=== PATIENT | male | born 1990 | race Caucasian/White ===

== ENCOUNTER 2018-01-25 14:33 | Inpatient (IN) | payer MEDICAID, OTHER ==
[~2018-01-25] VITALS: Ht 185.4 cm; Wt 79.2 kg
[2018-01-25] MEDS ORDERED: ALPR0.5T8 PO (15:00)
[2018-01-25] MEDS ORDERED: METH10 PO (15:02)
[2018-01-25] MEDS ORDERED: METH10SO PO (15:05)
[2018-01-25 15:09] LABS: BASOPHILS % (AUTO) 0.5 % (0.0-2.0); EOSINOPHILS % (AUTO) 2.1 % (1.0-6.0); HEMATOCRIT 42.6 % (41-53); HEMOGLOBIN 14.7 g/dL (13.5-17.5); LYMPHOCYTES # (AUTO) 2.1 K/uL (1.0-4.8); LYMPHOCYTES % (AUTO) 27.1 % (22.0-44.0); MEAN CORPUSCULAR HEMOGLOBIN 30.8 pg (26.0-34.0); MEAN CORPUSCULAR HGB CONC 34.6 G/dL (31.0-37.0); MEAN CORPUSCULAR VOLUME 89 fL (80-100); MONOCYTES # (AUTO) 0.7 K/uL (0.1-1.0); NEUTROPHILS # (AUTO) 4.7 K/uL (1.8-7.7); NEUTROPHILS % (AUTO) 61.3 % (40.0-70.0); PLATELET COUNT (AUTO) 258 K/uL (150-450); RED BLOOD CELL COUNT(AUTO) 4.79 MIL/uL (4.50-5.90); RED CELL DISTRIBUTION WIDTH 14.7 % (11.5-14.5)
[2018-01-25 15:24] LABS: ANION GAP 7 mmol/L (8-16); CALCIUM, TOTAL 8.7 mg/dL (8.8-10.5); CARBON DIOXIDE 32 mmol/L (22-29); CHLORIDE 102 mmol/L (98-107); CREATININE 0.75 mg/dL (0.60-1.30); GLOMERULAR FILTR. RATE CALC > 60 mL/min (>60); GLUCOSE,RANDOM 86 mg/dL (70-110); POTASSIUM 3.8 mmol/L (3.5-5.1); SODIUM SERUM 141 mmol/L (136-145); UREA NITROGEN, BLOOD 10 mg/dL (7-18)
[2018-01-25 15:30] LABS: ALANINE AMINOTRANSFERASE 30 U/L (12-78); ALBUMIN 3.9 g/dL (3.4-5.0); ALKALINE PHOSPHATASE 85 U/L (46-116); ASPARTATE AMINOTRANSFERASE 32 U/L (15-37); BILIRUBIN,TOTAL 0.9 mg/dL (0.1-1.0); TOTAL PROTEIN, SERUM 7.2 g/dL (6.4-8.2)
[2018-01-25] MEDS ORDERED: ACETAMINOPHEN 500 MG TABLET PO ONE (15:30)
[2018-01-25] MEDS ORDERED: PERTUSS(ACELL),DIPH,TET VAC/PF 0.5 ML VIAL IM ONE (15:30)
[2018-01-25] MEDS ORDERED: MUPIROCIN CALCIUM 2% 22 GM OINTMENT TP ONE (15:30)
[2018-01-25] MEDS ORDERED: SULFAMETHOX/TRIMETH DS 800-160 MG/TABLET PO ONE (16:00)
[2018-01-25] MEDS ORDERED: CEPHALEXIN MONOHYDRATE 500 MG CAPSULE PO ONE (16:00)
[2018-01-25 16:16] LABS: AMPHET/METH SCREEN,URINE POSITIVE (NEGATIVE); BARBITURATE SCREEN, URINE NEGATIVE (NEGATIVE); BENZODIAZEPINES SCREEN,URINE POSITIVE (NEGATIVE); CANNABINOID SCREEN,URINE NEGATIVE (NEGATIVE); COCAINE SCREEN,URINE NEGATIVE (NEGATIVE); METHADONE SCREEN, URINE POSITIVE (NEGATIVE); OPIATE SCREEN,URINE NEGATIVE (NEGATIVE)
[2018-01-25 16:18] LABS: PHENCYCLIDINE SCREEN,URINE NEGATIVE (NEGATIVE)
[2018-01-25] MEDS ORDERED: ZOLPIDEM TARTRATE 10 MG TABLET PO PRN (18:45)
[2018-01-25] MEDS ORDERED: OLANZapine 5 MG RAPDIS TABLET PO PRN (18:45)
[2018-01-25] MEDS ORDERED: LORazepam 2 MG TABLET PO PRN (18:45)
[2018-01-25 23:04] VITALS: BP 114/72
[2018-01-26 08:06] VITALS: BP 108/57
[2018-01-26] MEDS ORDERED: ACETAMINOPHEN 325 MG TABLET PO PRN (16:45)
[2018-01-26] MEDS ORDERED: ALBUTEROL SULFATE HFA 90 MCG/PUFF 8 GM INHALER IH PRN (16:45)
[2018-01-26] MEDS ORDERED: PETROLATUM,WHITE 71 GM JELLY TP PRN (16:45)
[2018-01-26] MEDS ORDERED: MAGNESIUM HYDROXIDE SUSPENSION 30 ML UDCUP PO PRN (16:45)
[2018-01-26] MEDS ORDERED: LOPERAMIDE HCL 2 MG CAPSULE PO PRN (16:45)
[2018-01-26] MEDS ORDERED: BENZOCAINE/MENTHOL LOZENGE MM PRN (16:45)
[2018-01-26] MEDS ORDERED: MAG HYDROX/AL HYDROX/SIMETH ES 30 ML SUSPENSION UDCUP PO PRN (16:45)
[2018-01-26] MEDS ORDERED: ONDANSETRON HCL 4 MG TABLET PO PRN (16:45)
[2018-01-26] MEDS ORDERED: BACITRACIN 28.4 GM OINTMENT TP PRN (16:45)
[2018-01-26] MEDS ORDERED: IBUPROFEN 600 MG TABLET PO PRN (16:45)
[2018-01-26] MEDS ORDERED: CloNIDine HCL 0.1 MG TABLET PO PRN (16:45)
[2018-01-26 17:38] VITALS: BP 125/72
[2018-01-26 20:30] VITALS: BP 110/84
[2018-01-26] MEDS: GABAPENTIN 300 MG CAPSULE PO SCH (21:46)
[2018-01-27 07:52] LABS: HEMATOCRIT 41.9 % (41-53); HEMOGLOBIN 14.6 g/dL (13.5-17.5); MEAN CORPUSCULAR HEMOGLOBIN 31.2 pg (26.0-34.0); MEAN CORPUSCULAR HGB CONC 34.8 G/dL (31.0-37.0); MEAN CORPUSCULAR VOLUME 90 fL (80-100); PLATELET COUNT (AUTO) 254 K/uL (150-450); RED BLOOD CELL COUNT(AUTO) 4.68 MIL/uL (4.50-5.90); RED CELL DISTRIBUTION WIDTH 14.7 % (11.5-14.5)
[2018-01-27 08:33] LABS: ANION GAP 3 mmol/L (8-16); CALCIUM, TOTAL 8.7 mg/dL (8.8-10.5); CARBON DIOXIDE 33 mmol/L (22-29); CHLORIDE 105 mmol/L (98-107); CHOL/HDL RATIO 2.6 (4.2-7.3); CHOLESTEROL 155 mg/dL (131-200); CREATININE 0.79 mg/dL (0.60-1.30); GLOMERULAR FILTR. RATE CALC > 60 mL/min (>60); GLUCOSE,RANDOM 105 mg/dL (70-110); HDL CHOLESTEROL 59 mg/dL (40-60); LDL CHOL (CALC.) 78 mg/dL (0-130); PHOSPHORUS 3.1 mg/dL (2.5-4.9); POTASSIUM 4.8 mmol/L (3.5-5.1); SODIUM SERUM 141 mmol/L (136-145); THYROID STIMULATING HORMONE 0.15 uIU/mL (0.36-3.74); TRIGLYCERIDES 91 mg/dL (15-150); UREA NITROGEN, BLOOD 7 mg/dL (7-18)
[2018-01-27 08:46] LABS: BAND NEUTROPHILS % (MANUAL) 1 % (0-5); EOSINOPHILS % (MANUAL) 2 % (1-6); LYMPHOCYTES % (MANUAL) 32 % (22-44); MONOCYTES % (MANUAL) 3 % (2-9); SEGMENTED NEUTROPHILS % 62 % (40-70)
[2018-01-27] MEDS ORDERED: DULoxetine HCL 20 MG CAPSULE PO SCH (09:00)
[2018-01-27] MEDS: OMEPRAZOLE 20 MG CAPSULE PO SCH (09:02)
[2018-01-27] MEDS: GABAPENTIN 300 MG CAPSULE PO SCH (09:02)
[2018-01-27] MEDS: DOCUSATE SODIUM 100 MG CAPSULE PO SCH (09:02)
[2018-01-27] MEDS: DISULFIRAM 250 MG TABLET PO SCH (09:02)
[2018-01-27 09:07] VITALS: BP 130/81
[2018-01-27] MEDS: METHADONE HCL 10 MG/5 ML SOLUTION ORAL.SYG PO SCH (09:46)
[2018-01-27] MEDS ORDERED: LORazepam 0.5 MG TABLET PO PRN (12:22)
[2018-01-27] MEDS: GABAPENTIN 400 MG CAPSULE PO SCH ×3 (13:52→20:32)
[2018-01-27 18:39] VITALS: BP 110/56
[2018-01-28 08:38] VITALS: BP 113/83
[2018-01-28] MEDS: GABAPENTIN 400 MG CAPSULE PO SCH ×4 (09:17→21:49)
[2018-01-28] MEDS: METHADONE HCL 10 MG/5 ML SOLUTION ORAL.SYG PO SCH (09:17)
[2018-01-28] MEDS: OMEPRAZOLE 20 MG CAPSULE PO SCH (09:17)
[2018-01-28] MEDS: DOCUSATE SODIUM 100 MG CAPSULE PO SCH (09:17)
[2018-01-28] MEDS: DISULFIRAM 250 MG TABLET PO SCH (09:17)
[2018-01-28] MEDS: DULoxetine HCL 30 MG CAPSULE PO SCH (09:18)
[2018-01-28 16:55] VITALS: BP 128/56
[2018-01-29] MEDS: OMEPRAZOLE 20 MG CAPSULE PO SCH (09:20)
[2018-01-29] MEDS: DULoxetine HCL 30 MG CAPSULE PO SCH (09:20)
[2018-01-29] MEDS: DOCUSATE SODIUM 100 MG CAPSULE PO SCH (09:20)
[2018-01-29] MEDS: DISULFIRAM 250 MG TABLET PO SCH (09:20)
[2018-01-29] MEDS: GABAPENTIN 400 MG CAPSULE PO SCH ×3 (09:20→16:52)
[2018-01-29 09:30] VITALS: BP 130/64
[2018-01-29] MEDS: METHADONE HCL 10 MG/5 ML SOLUTION ORAL.SYG PO SCH (11:04)
[2018-01-29 16:30] VITALS: BP 120/62
[2018-01-29] MEDS: GABAPENTIN 300 MG CAPSULE PO SCH (20:18)
[2018-01-30] MEDS: OMEPRAZOLE 20 MG CAPSULE PO SCH (08:13)
[2018-01-30] MEDS: DOCUSATE SODIUM 100 MG CAPSULE PO SCH (08:13)
[2018-01-30] MEDS: DULoxetine HCL 20 MG CAPSULE PO SCH (08:13)
[2018-01-30] MEDS: GABAPENTIN 300 MG CAPSULE PO SCH ×4 (08:14→20:43)
[2018-01-30] MEDS: DISULFIRAM 250 MG TABLET PO SCH (08:14)
[2018-01-30 08:30] VITALS: BP 132/72
[2018-01-30] MEDS: METHADONE HCL 10 MG/5 ML SOLUTION ORAL.SYG PO SCH (09:40)
[2018-01-30 18:56] VITALS: BP 109/67
[2018-01-31 08:30] VITALS: BP 126/89
[2018-01-31] MEDS: METHADONE HCL 10 MG/5 ML SOLUTION ORAL.SYG PO SCH (08:35)
[2018-01-31] MEDS: DOCUSATE SODIUM 100 MG CAPSULE PO SCH (09:20)
[2018-01-31] MEDS: DULoxetine HCL 20 MG CAPSULE PO SCH (09:20)
[2018-01-31] MEDS: OMEPRAZOLE 20 MG CAPSULE PO SCH (09:20)
[2018-01-31] MEDS: GABAPENTIN 300 MG CAPSULE PO SCH ×3 (09:20→17:26)
[2018-01-31] MEDS: DISULFIRAM 250 MG TABLET PO SCH (09:20)
[2018-01-31] MEDS ORDERED: DISU250 PO (09:35)
[2018-01-31] MEDS ORDERED: DULO20CA30 PO (09:35)
[2018-01-31] MEDS ORDERED: GABA-531 PO (09:35)
[2018-01-31] MEDS ORDERED: DSS100 PO (09:37)
[2018-01-31] MEDS ORDERED: OMEP20 PO (09:37)
== END 2018-01-31 17:45 | disposition home or self-care (01) | DRG 751 ==
LOC: EMS 14:37 → AHU 22:00 → EMS 22:13 → 3EI 01-26 20:03
PROVIDERS: ADMIT Psychiatry & Neurology Psychiatry; ATTEND Psychiatry & Neurology Psychiatry
DX: F33.2 Major depressive disorder, recurrent severe without psychotic features (principal); R45.851 Suicidal ideations; E83.51 Hypocalcemia; F11.10 Opioid abuse, uncomplicated; F15.90 Other stimulant use, unspecified, uncomplicated; F41.9 Anxiety disorder, unspecified; G47.00 Insomnia, unspecified; K59.00 Constipation, unspecified; M79.675 Pain in left toe(s); M25.532 Pain in left wrist; F17.210 Nicotine dependence, cigarettes, uncomplicated; Z59.0 Homelessness; Z88.0 Allergy status to penicillin; Z88.8 Allergy status to other drugs, medicaments and biological substances; Z79.899 Other long term (current) drug therapy; Z72.89 Other problems related to lifestyle; Z71.6 Tobacco abuse counseling; Z71.51 Drug abuse counseling and surveillance of drug abuser; Z71.41 Alcohol abuse counseling and surveillance of alcoholic
CPT/HCPCS: 82306; 83735; 84100; 84443; 85007; 90471; 90715; 99285; G0480

== ENCOUNTER 2018-03-04 09:28 | Inpatient (IN) | payer MEDICAID, OTHER ==
[~2018-03-04] VITALS: Ht 185.4 cm; Wt 78.9 kg
[~2018-03-04 09:28] MED LIST: DISU250 PO; DSS100 PO; DULO20CA30 PO; GABA-531 PO; OMEP20 PO
[2018-03-04 10:12] LABS: BASOPHILS % (AUTO) 0.2 % (0.0-2.0); EOSINOPHILS % (AUTO) 0.4 % (1.0-6.0); HEMATOCRIT 43.1 % (41-53); HEMOGLOBIN 14.9 g/dL (13.5-17.5); LYMPHOCYTES # (AUTO) 1.1 K/uL (1.0-4.8); LYMPHOCYTES % (AUTO) 12.8 % (22.0-44.0); MEAN CORPUSCULAR HEMOGLOBIN 30.2 pg (26.0-34.0); MEAN CORPUSCULAR HGB CONC 34.7 G/dL (31.0-37.0); MEAN CORPUSCULAR VOLUME 87 fL (80-100); MONOCYTES # (AUTO) 0.3 K/uL (0.1-1.0); MONOCYTES % (AUTO) 3.2 % (2.0-9.0); NEUTROPHILS # (AUTO) 7.2 K/uL (1.8-7.7); NEUTROPHILS % (AUTO) 83.4 % (40.0-70.0); PLATELET COUNT (AUTO) 226 K/uL (150-450); RED BLOOD CELL COUNT(AUTO) 4.95 MIL/uL (4.50-5.90); RED CELL DISTRIBUTION WIDTH 13.5 % (11.5-14.5)
[2018-03-04 10:27] LABS: ANION GAP 9 mmol/L (8-16); CALCIUM, TOTAL 9.2 mg/dL (8.8-10.5); CARBON DIOXIDE 27 mmol/L (22-29); CHLORIDE 101 mmol/L (98-107); CREATININE 0.75 mg/dL (0.60-1.30); GLOMERULAR FILTR. RATE CALC > 60 mL/min (>60); GLUCOSE,RANDOM 100 mg/dL (70-110); POTASSIUM 4.2 mmol/L (3.5-5.1); SODIUM SERUM 137 mmol/L (136-145); UREA NITROGEN, BLOOD 11 mg/dL (7-18)
[2018-03-04 10:32] LABS: ALANINE AMINOTRANSFERASE 18 U/L (12-78); ALBUMIN 4.1 g/dL (3.4-5.0); ALKALINE PHOSPHATASE 63 U/L (46-116); ASPARTATE AMINOTRANSFERASE 16 U/L (15-37); BILIRUBIN,TOTAL 0.6 mg/dL (0.1-1.0); TOTAL PROTEIN, SERUM 7.3 g/dL (6.4-8.2)
[2018-03-04 12:08] LABS: AMPHET/METH SCREEN,URINE POSITIVE (NEGATIVE); BARBITURATE SCREEN, URINE NEGATIVE (NEGATIVE); BENZODIAZEPINES SCREEN,URINE POSITIVE (NEGATIVE); CANNABINOID SCREEN,URINE NEGATIVE (NEGATIVE); COCAINE SCREEN,URINE NEGATIVE (NEGATIVE); METHADONE SCREEN, URINE POSITIVE (NEGATIVE); OPIATE SCREEN,URINE NEGATIVE (NEGATIVE)
[2018-03-04] MEDS ORDERED: LORazepam 2 MG TABLET PO PRN (12:15)
[2018-03-04 12:39] LABS: PHENCYCLIDINE SCREEN,URINE NEGATIVE (NEGATIVE)
[2018-03-04 12:44] LABS: APPEARANCE,URINE CLOUDY (CLEAR); GLUCOSE, URINE (UA) NEGATIVE (NEGATIVE); KETONES,URINE >=80 mg/dL (NEGATIVE); LEUKOCYTE ESTERASE ,URINE NEGATIVE (NEGATIVE); NITRATE,URINE NEGATIVE (NEGATIVE); OCCULT BLOOD,URINE NEGATIVE (NEGATIVE); PH,URINE 6.5 (5.0-8.0); PROTEIN,URINE NEGATIVE (NEGATIVE)
[2018-03-04 12:45] LABS: BILIRUBIN,URINE PRELIM. POSITIVE (NEGATIVE)
[2018-03-04 12:48] LABS: RBC,URINE 0-2 /HPF (0-2)
[2018-03-04 12:49] LABS: BACTERIA,URINE None Seen /HPF (None Seen); SQUAMOUS EPITHELIAL CELL,UR Rare /LPF (None Seen)
[2018-03-04 12:50] LABS: CALCIUM OXALATE CRYSTALS,UR Many /LPF (None Seen); MUCUS,URINE Many LPF (None Seen)
[2018-03-04] MEDS ORDERED: PROMETHAZINE HCL 25 MG TABLET PO PRN (13:45)
[2018-03-04] MEDS ORDERED: MAG HYDROX/AL HYDROX/SIMETH ES 30 ML SUSPENSION UDCUP PO PRN ×2 (13:45→15:15)
[2018-03-04] MEDS ORDERED: MAGNESIUM HYDROXIDE SUSPENSION 30 ML UDCUP PO PRN ×2 (13:45→15:15)
[2018-03-04] MEDS ORDERED: LOPERAMIDE HCL 2 MG CAPSULE PO PRN ×2 (13:45→15:15)
[2018-03-04] MEDS ORDERED: ACETAMINOPHEN 325 MG TABLET PO PRN ×2 (13:45→15:15)
[2018-03-04] MEDS ORDERED: GuaiFENesin/D-METHORPHAN [SUGAR-FREE] 200-20MG/10 ML SYRUP UDCUP PO PRN (13:45)
[2018-03-04 14:54] VITALS: BP 112/83
[2018-03-04] MEDS ORDERED: ALBUTEROL SULFATE HFA 90 MCG/PUFF 8 GM INHALER IH PRN (15:15)
[2018-03-04] MEDS ORDERED: IBUPROFEN 600 MG TABLET PO PRN (15:15)
[2018-03-04] MEDS ORDERED: BENZOCAINE/MENTHOL LOZENGE MM PRN (15:15)
[2018-03-04] MEDS ORDERED: PETROLATUM,WHITE 71 GM JELLY TP PRN (15:15)
[2018-03-04] MEDS ORDERED: CloNIDine HCL 0.1 MG TABLET PO PRN (15:15)
[2018-03-04] MEDS ORDERED: BACITRACIN 28.4 GM OINTMENT TP PRN (15:15)
[2018-03-04] MEDS ORDERED: ONDANSETRON HCL 4 MG TABLET PO PRN (15:15)
[2018-03-04] MEDS: THIAMINE HCL 100 MG TABLET PO SCH (16:03)
[2018-03-04] MEDS: GABAPENTIN 300 MG CAPSULE PO SCH (16:05)
[2018-03-04] MEDS: HydrOXYzine PAMOATE 50 MG CAPSULE PO PRN (16:05)
[2018-03-04 16:10] VITALS: BP 110/61
[2018-03-04] MEDS ORDERED: GABAPENTIN 300 MG CAPSULE PO SCH (17:00)
[2018-03-04] MEDS: ACAMPROSATE CALCIUM 333 MG DR TABLET PO SCH (17:15)
[2018-03-04] MEDS ORDERED: PARoxetine HCL 20 MG TABLET PO SCH (21:00)
[2018-03-05 03:20] VITALS: BP 112/66
[2018-03-05] MEDS: OLANZapine 5 MG RAPDIS TABLET PO PRN (03:30)
[2018-03-05 08:45] VITALS: BP 122/65
[2018-03-05] MEDS: GABAPENTIN 300 MG CAPSULE PO SCH ×3 (08:54→16:20)
[2018-03-05] MEDS: FOLIC ACID 1 MG TABLET PO SCH (08:54)
[2018-03-05] MEDS: THIAMINE HCL 100 MG TABLET PO SCH ×2 (08:54→16:20)
[2018-03-05] MEDS: OMEPRAZOLE 20 MG CAPSULE PO SCH (08:54)
[2018-03-05] MEDS: ACAMPROSATE CALCIUM 333 MG DR TABLET PO SCH ×3 (08:54→16:20)
[2018-03-05] MEDS: MULTIVITAMINS WITH MINERALS, THERAPEUTIC TABLET PO SCH (08:54)
[2018-03-05] MEDS: DOCUSATE SODIUM 100 MG CAPSULE PO SCH (08:54)
[2018-03-05] MEDS ORDERED: DULoxetine HCL 20 MG CAPSULE PO SCH (09:00)
[2018-03-05 09:33] LABS: CHOL/HDL RATIO 4.3 (4.2-7.3)
[2018-03-05] MEDS: METHADONE HCL 10 MG/5 ML SOLUTION ORAL.SYG PO SCH (09:43)
[2018-03-05] MEDS ORDERED: BACITRACIN 28.4 GM OINTMENT TP PRN (12:45)
[2018-03-05] MEDS ORDERED: BENZOCAINE/MENTHOL LOZENGE MM PRN (12:45)
[2018-03-05] MEDS ORDERED: ALBUTEROL SULFATE HFA 90 MCG/PUFF 8 GM INHALER IH PRN (12:45)
[2018-03-05] MEDS ORDERED: CloNIDine HCL 0.1 MG TABLET PO PRN (12:45)
[2018-03-05] MEDS ORDERED: ONDANSETRON HCL 4 MG TABLET PO PRN (12:45)
[2018-03-05] MEDS ORDERED: IBUPROFEN 600 MG TABLET PO PRN (12:45)
[2018-03-05] MEDS ORDERED: PETROLATUM,WHITE 71 GM JELLY TP PRN (12:45)
[2018-03-05] MEDS: HydrOXYzine PAMOATE 50 MG CAPSULE PO PRN (16:21)
[2018-03-05 18:16] VITALS: BP 115/71
[2018-03-05] MEDS: PARoxetine HCL 20 MG TABLET PO SCH (20:22)
[2018-03-05] MEDS: ZOLPIDEM TARTRATE 10 MG TABLET PO PRN (20:43)
[2018-03-06 04:22] VITALS: BP 114/78
[2018-03-06] MEDS: DOCUSATE SODIUM 100 MG CAPSULE PO SCH (08:33)
[2018-03-06] MEDS: GABAPENTIN 300 MG CAPSULE PO SCH ×3 (08:33→16:10)
[2018-03-06] MEDS: THIAMINE HCL 100 MG TABLET PO SCH ×2 (08:34→16:10)
[2018-03-06] MEDS: MULTIVITAMINS WITH MINERALS, THERAPEUTIC TABLET PO SCH (08:34)
[2018-03-06] MEDS: FOLIC ACID 1 MG TABLET PO SCH (08:34)
[2018-03-06] MEDS: OMEPRAZOLE 20 MG CAPSULE PO SCH (08:35)
[2018-03-06 08:36] VITALS: BP 119/73
[2018-03-06] MEDS: ACAMPROSATE CALCIUM 333 MG DR TABLET PO SCH ×3 (08:37→17:00)
[2018-03-06] MEDS: METHADONE HCL 10 MG/5 ML SOLUTION ORAL.SYG PO SCH (08:46)
[2018-03-06] MEDS ORDERED: OMEPRAZOLE 20 MG CAPSULE PO SCH (09:00)
[2018-03-06] MEDS: HydrOXYzine PAMOATE 50 MG CAPSULE PO PRN ×2 (11:31→21:43)
[2018-03-06] MEDS: NICOTINE 21 MG/24 HOUR PATCH TD SCH (12:21)
[2018-03-06 16:35] VITALS: BP 113/68
[2018-03-06] MEDS: ZOLPIDEM TARTRATE 10 MG TABLET PO PRN (20:24)
[2018-03-06] MEDS: PARoxetine HCL 20 MG TABLET PO SCH (20:24)
[2018-03-07 06:57] VITALS: BP 113/68
[2018-03-07] MEDS: METHADONE HCL 10 MG/5 ML SOLUTION ORAL.SYG PO SCH (08:29)
[2018-03-07] MEDS: GABAPENTIN 300 MG CAPSULE PO SCH ×3 (08:31→16:15)
[2018-03-07] MEDS: MULTIVITAMINS WITH MINERALS, THERAPEUTIC TABLET PO SCH (08:31)
[2018-03-07] MEDS: FOLIC ACID 1 MG TABLET PO SCH (08:31)
[2018-03-07] MEDS: OMEPRAZOLE 20 MG CAPSULE PO SCH (08:31)
[2018-03-07] MEDS: THIAMINE HCL 100 MG TABLET PO SCH ×2 (08:31→16:15)
[2018-03-07] MEDS: DOCUSATE SODIUM 100 MG CAPSULE PO SCH (08:31)
[2018-03-07] MEDS: ACAMPROSATE CALCIUM 333 MG DR TABLET PO SCH ×3 (08:32→16:19)
[2018-03-07 08:38] VITALS: BP 124/74
[2018-03-07] MEDS: NICOTINE 21 MG/24 HOUR PATCH TD SCH (09:00)
[2018-03-07] MEDS: HydrOXYzine PAMOATE 50 MG CAPSULE PO PRN ×2 (10:56→16:15)
[2018-03-07 16:30] VITALS: BP 112/70
[2018-03-07] MEDS: PARoxetine HCL 20 MG TABLET PO SCH (20:17)
[2018-03-07] MEDS: OLANZapine 5 MG RAPDIS TABLET PO PRN (20:22)
[2018-03-07] MEDS: ZOLPIDEM TARTRATE 10 MG TABLET PO PRN (21:16)
[2018-03-08 01:29] VITALS: BP 113/64
[2018-03-08 08:00] VITALS: BP 124/68
[2018-03-08] MEDS: GABAPENTIN 300 MG CAPSULE PO SCH ×2 (08:49→12:29)
[2018-03-08] MEDS: NICOTINE 21 MG/24 HOUR PATCH TD SCH (08:49)
[2018-03-08] MEDS: ACAMPROSATE CALCIUM 333 MG DR TABLET PO SCH ×3 (08:50→17:00)
[2018-03-08] MEDS: MULTIVITAMINS WITH MINERALS, THERAPEUTIC TABLET PO SCH (08:50)
[2018-03-08] MEDS: OLANZapine 5 MG RAPDIS TABLET PO PRN ×2 (08:50→18:30)
[2018-03-08] MEDS: DOCUSATE SODIUM 100 MG CAPSULE PO SCH (08:50)
[2018-03-08] MEDS: FOLIC ACID 1 MG TABLET PO SCH (08:50)
[2018-03-08] MEDS: OMEPRAZOLE 20 MG CAPSULE PO SCH (08:50)
[2018-03-08] MEDS: THIAMINE HCL 100 MG TABLET PO SCH ×2 (08:50→16:12)
[2018-03-08] MEDS: HydrOXYzine PAMOATE 50 MG CAPSULE PO PRN ×2 (08:50→18:30)
[2018-03-08] MEDS: METHADONE HCL 10 MG/5 ML SOLUTION ORAL.SYG PO SCH ×2 (08:50→08:53)
[2018-03-08] MEDS: GABAPENTIN 400 MG CAPSULE PO SCH (16:12)
[2018-03-08 19:31] VITALS: BP 121/70
[2018-03-08] MEDS: PARoxetine HCL 20 MG TABLET PO SCH (20:30)
[2018-03-08] MEDS: ZOLPIDEM TARTRATE 10 MG TABLET PO PRN (20:37)
[2018-03-09 06:41] VITALS: BP 115/76
[2018-03-09] MEDS: FOLIC ACID 1 MG TABLET PO SCH (08:15)
[2018-03-09] MEDS: MULTIVITAMINS WITH MINERALS, THERAPEUTIC TABLET PO SCH (08:15)
[2018-03-09] MEDS: NICOTINE 21 MG/24 HOUR PATCH TD SCH (08:15)
[2018-03-09] MEDS: THIAMINE HCL 100 MG TABLET PO SCH ×2 (08:15→17:39)
[2018-03-09] MEDS: OMEPRAZOLE 20 MG CAPSULE PO SCH (08:15)
[2018-03-09] MEDS: ACAMPROSATE CALCIUM 333 MG DR TABLET PO SCH ×3 (08:15→17:00)
[2018-03-09] MEDS: DOCUSATE SODIUM 100 MG CAPSULE PO SCH (08:15)
[2018-03-09] MEDS: GABAPENTIN 400 MG CAPSULE PO SCH ×3 (08:15→17:39)
[2018-03-09] MEDS: METHADONE HCL 10 MG/5 ML SOLUTION ORAL.SYG PO SCH (08:16)
[2018-03-09 08:32] VITALS: BP 113/75
[2018-03-09] MEDS: OLANZapine 5 MG RAPDIS TABLET PO PRN ×2 (08:47→14:59)
[2018-03-09] MEDS: HydrOXYzine PAMOATE 50 MG CAPSULE PO PRN (08:47)
[2018-03-09] MEDS ORDERED: ACAM333T7 PO ×2 (10:35→14:05)
[2018-03-09] MEDS ORDERED: PARO-37 PO (10:35)
[2018-03-09] MEDS ORDERED: GABA-533 PO ×2 (10:35→14:05)
[2018-03-09] MEDS ORDERED: PARO20TA24 PO (14:05)
[2018-03-09 16:10] VITALS: BP 108/69
[2018-03-09] MEDS: PARoxetine HCL 20 MG TABLET PO SCH (20:22)
[2018-03-09] MEDS: ZOLPIDEM TARTRATE 10 MG TABLET PO PRN (20:30)
[2018-03-10] VITALS: BP 114/82
[2018-03-10] MEDS: ZOLPIDEM TARTRATE 10 MG TABLET PO PRN (04:05)
[2018-03-10] MEDS: OLANZapine 5 MG RAPDIS TABLET PO PRN (05:56)
[2018-03-10] MEDS: OMEPRAZOLE 20 MG CAPSULE PO SCH (08:13)
[2018-03-10] MEDS: MULTIVITAMINS WITH MINERALS, THERAPEUTIC TABLET PO SCH (08:13)
[2018-03-10] MEDS: THIAMINE HCL 100 MG TABLET PO SCH (08:14)
[2018-03-10] MEDS: GABAPENTIN 400 MG CAPSULE PO SCH (08:14)
[2018-03-10] MEDS: FOLIC ACID 1 MG TABLET PO SCH (08:14)
[2018-03-10] MEDS: NICOTINE 21 MG/24 HOUR PATCH TD SCH (08:14)
[2018-03-10] MEDS: METHADONE HCL 10 MG/5 ML SOLUTION ORAL.SYG PO SCH (08:15)
[2018-03-10] MEDS: DOCUSATE SODIUM 100 MG CAPSULE PO SCH (08:22)
[2018-03-10] MEDS: ACAMPROSATE CALCIUM 333 MG DR TABLET PO SCH (08:23)
[2018-03-10 08:55] VITALS: BP 125/77
== END 2018-03-10 09:30 | disposition home or self-care (01) | DRG 751 ==
LOC: EMS 09:32 → B2S 12:52
PROVIDERS: ADMIT Psychiatry & Neurology Psychiatry; ATTEND Psychiatry & Neurology Psychiatry
DX: F33.9 Major depressive disorder, recurrent, unspecified (principal); R45.851 Suicidal ideations; E83.51 Hypocalcemia; F41.9 Anxiety disorder, unspecified; G47.00 Insomnia, unspecified; F11.10 Opioid abuse, uncomplicated; F15.90 Other stimulant use, unspecified, uncomplicated; K59.00 Constipation, unspecified; E78.00 Pure hypercholesterolemia, unspecified; F12.90 Cannabis use, unspecified, uncomplicated; F17.210 Nicotine dependence, cigarettes, uncomplicated; Z65.3 Problems related to other legal circumstances; Z88.0 Allergy status to penicillin; Z72.89 Other problems related to lifestyle; Z88.8 Allergy status to other drugs, medicaments and biological substances; Z59.0 Homelessness; Z91.19 Patient's noncompliance with other medical treatment and regimen; Z79.899 Other long term (current) drug therapy
CPT/HCPCS: 99285; 99406; G0480

== ENCOUNTER 2018-03-29 11:32 | Inpatient (IN) | payer MEDICAID, OTHER ==
[~2018-03-29] VITALS: Ht 188 cm; Wt 77.8 kg
[~2018-03-29 11:32] MED LIST changes: +ACAM333T7 PO; -DISU250 PO; -DSS100 PO; -DULO20CA30 PO; -GABA-531 PO; +GABA-533 PO; -OMEP20 PO; +PARO-37 PO; +PARO20TA24 PO
[2018-03-29 15:29] LABS: BASOPHILS % (AUTO) 0.7 % (0.0-2.0); EOSINOPHILS % (AUTO) 1.5 % (1.0-6.0); HEMATOCRIT 42.2 % (41-53); HEMOGLOBIN 14.2 g/dL (13.5-17.5); LYMPHOCYTES # (AUTO) 1.9 K/uL (1.0-4.8); MEAN CORPUSCULAR HEMOGLOBIN 29.6 pg (26.0-34.0); MEAN CORPUSCULAR HGB CONC 33.5 G/dL (31.0-37.0); MEAN CORPUSCULAR VOLUME 88 fL (80-100); MONOCYTES # (AUTO) 0.6 K/uL (0.1-1.0); MONOCYTES % (AUTO) 10.2 % (2.0-9.0); NEUTROPHILS # (AUTO) 3.1 K/uL (1.8-7.7); NEUTROPHILS % (AUTO) 54.6 % (40.0-70.0); PLATELET COUNT (AUTO) 211 K/uL (150-450); RED BLOOD CELL COUNT(AUTO) 4.78 MIL/uL (4.50-5.90); RED CELL DISTRIBUTION WIDTH 14.2 % (11.5-14.5)
[2018-03-29 15:40] LABS: ANION GAP 8 mmol/L (8-16); CALCIUM, TOTAL 8.7 mg/dL (8.8-10.5); CARBON DIOXIDE 29 mmol/L (22-29); CHLORIDE 105 mmol/L (98-107); CREATININE 0.77 mg/dL (0.60-1.30); GLOMERULAR FILTR. RATE CALC > 60 mL/min (>60); GLUCOSE,RANDOM 98 mg/dL (70-110); POTASSIUM 4.2 mmol/L (3.5-5.1); SODIUM SERUM 142 mmol/L (136-145); UREA NITROGEN, BLOOD 9 mg/dL (7-18)
[2018-03-29 15:47] LABS: ALANINE AMINOTRANSFERASE 16 U/L (12-78); ALBUMIN 3.7 g/dL (3.4-5.0); ALKALINE PHOSPHATASE 74 U/L (46-116); ASPARTATE AMINOTRANSFERASE 15 U/L (15-37); BILIRUBIN,TOTAL 0.3 mg/dL (0.1-1.0); TOTAL PROTEIN, SERUM 6.9 g/dL (6.4-8.2)
[2018-03-29 16:01] LABS: AMPHET/METH SCREEN,URINE POSITIVE (NEGATIVE); BARBITURATE SCREEN, URINE NEGATIVE (NEGATIVE); BENZODIAZEPINES SCREEN,URINE POSITIVE (NEGATIVE); CANNABINOID SCREEN,URINE NEGATIVE (NEGATIVE); COCAINE SCREEN,URINE POSITIVE (NEGATIVE); METHADONE SCREEN, URINE POSITIVE (NEGATIVE); OPIATE SCREEN,URINE NEGATIVE (NEGATIVE)
[2018-03-29 16:03] LABS: PHENCYCLIDINE SCREEN,URINE NEGATIVE (NEGATIVE)
[2018-03-29] MEDS ORDERED: LORazepam 2 MG/ML VIAL ONE (16:37)
[2018-03-29] MEDS ORDERED: HALOPERIDOL LACTATE 5 MG/ML VIAL ONE (16:37)
[2018-03-29] MEDS ORDERED: DiphenhydrAMINE HCL 50 MG/ML VIAL ONE (16:37)
[2018-03-29] MEDS ORDERED: DiphenhydrAMINE HCL 50 MG/ML VIAL IM ONE (16:45)
[2018-03-29] MEDS ORDERED: LORazepam 2 MG/ML VIAL IM ONE (16:45)
[2018-03-29] MEDS ORDERED: HALOPERIDOL LACTATE 5 MG/ML VIAL IM ONE (16:45)
[2018-03-29] MEDS ORDERED: ACETAMINOPHEN 325 MG TABLET PO PRN (18:15)
[2018-03-29] MEDS ORDERED: GuaiFENesin/D-METHORPHAN [SUGAR-FREE] 200-20MG/10 ML SYRUP UDCUP PO PRN (18:15)
[2018-03-29] MEDS ORDERED: ZOLPIDEM TARTRATE 10 MG TABLET PO PRN (18:15)
[2018-03-29] MEDS ORDERED: MAGNESIUM HYDROXIDE SUSPENSION 30 ML UDCUP PO PRN (18:15)
[2018-03-29] MEDS ORDERED: PROMETHAZINE HCL 25 MG TABLET PO PRN (18:15)
[2018-03-29] MEDS ORDERED: HydrOXYzine PAMOATE 50 MG CAPSULE PO PRN (18:15)
[2018-03-29] MEDS ORDERED: LORazepam 2 MG TABLET PO PRN (18:15)
[2018-03-29] MEDS ORDERED: MAG HYDROX/AL HYDROX/SIMETH ES 30 ML SUSPENSION UDCUP PO PRN (18:15)
[2018-03-29] MEDS ORDERED: LOPERAMIDE HCL 2 MG CAPSULE PO PRN (18:15)
[2018-03-29] MEDS: THIAMINE HCL 100 MG TABLET PO SCH (21:00)
[2018-03-29] MEDS: GABAPENTIN 400 MG CAPSULE PO SCH (21:00)
[2018-03-29] MEDS: ACAMPROSATE CALCIUM 333 MG DR TABLET PO SCH (21:00)
[2018-03-30 07:40] LABS: BASOPHILS % (AUTO) 0.9 % (0.0-2.0); EOSINOPHILS % (AUTO) 2.6 % (1.0-6.0); HEMATOCRIT 44.3 % (41-53); LYMPHOCYTES # (AUTO) 2.2 K/uL (1.0-4.8); LYMPHOCYTES % (AUTO) 41.3 % (22.0-44.0); MEAN CORPUSCULAR HEMOGLOBIN 30.2 pg (26.0-34.0); MEAN CORPUSCULAR HGB CONC 33.9 G/dL (31.0-37.0); MEAN CORPUSCULAR VOLUME 89 fL (80-100); MONOCYTES # (AUTO) 0.7 K/uL (0.1-1.0); MONOCYTES % (AUTO) 13.1 % (2.0-9.0); NEUTROPHILS # (AUTO) 2.2 K/uL (1.8-7.7); NEUTROPHILS % (AUTO) 42.1 % (40.0-70.0); PLATELET COUNT (AUTO) 215 K/uL (150-450); RED BLOOD CELL COUNT(AUTO) 4.97 MIL/uL (4.50-5.90); RED CELL DISTRIBUTION WIDTH 14.2 % (11.5-14.5)
[2018-03-30 08:05] LABS: ALANINE AMINOTRANSFERASE 16 U/L (12-78); ALBUMIN 3.6 g/dL (3.4-5.0); ALKALINE PHOSPHATASE 71 U/L (46-116); ANION GAP 7 mmol/L (8-16); ASPARTATE AMINOTRANSFERASE 26 U/L (15-37); BILIRUBIN,TOTAL 0.4 mg/dL (0.1-1.0); CALCIUM, TOTAL 8.9 mg/dL (8.8-10.5); CARBON DIOXIDE 30 mmol/L (22-29); CHLORIDE 106 mmol/L (98-107); CREATININE 0.76 mg/dL (0.60-1.30); FREE T4 (FREE THYROXINE) 0.78 ng/dL (0.76-1.46); GLOMERULAR FILTR. RATE CALC > 60 mL/min (>60); GLUCOSE,RANDOM 93 mg/dL (70-110); POTASSIUM 3.6 mmol/L (3.5-5.1); SODIUM SERUM 143 mmol/L (136-145); TOTAL PROTEIN, SERUM 6.9 g/dL (6.4-8.2); UREA NITROGEN, BLOOD 8 mg/dL (7-18)
[2018-03-30] MEDS ORDERED: PARoxetine HCL 20 MG TABLET PO SCH (09:00)
[2018-03-30] MEDS: ACAMPROSATE CALCIUM 333 MG DR TABLET PO SCH ×3 (09:11→17:04)
[2018-03-30] MEDS: MULTIVITAMINS WITH MINERALS, THERAPEUTIC TABLET PO SCH (09:11)
[2018-03-30] MEDS: GABAPENTIN 400 MG CAPSULE PO SCH ×3 (09:11→17:04)
[2018-03-30] MEDS: FOLIC ACID 1 MG TABLET PO SCH (09:12)
[2018-03-30] MEDS: THIAMINE HCL 100 MG TABLET PO SCH ×2 (09:12→17:04)
[2018-03-30 11:27] VITALS: BP 120/68
[2018-03-30] MEDS ORDERED: PETROLATUM,WHITE 71 GM JELLY TP PRN (12:15)
[2018-03-30] MEDS ORDERED: BACITRACIN 28.4 GM OINTMENT TP PRN (12:15)
[2018-03-30] MEDS ORDERED: BENZOCAINE/MENTHOL LOZENGE MM PRN (12:15)
[2018-03-30] MEDS ORDERED: CloNIDine HCL 0.1 MG TABLET PO PRN (12:15)
[2018-03-30] MEDS ORDERED: ONDANSETRON HCL 4 MG TABLET PO PRN (12:15)
[2018-03-30] MEDS ORDERED: ALBUTEROL SULFATE HFA 90 MCG/PUFF 8 GM INHALER IH PRN (12:15)
[2018-03-30] MEDS ORDERED: IBUPROFEN 600 MG TABLET PO PRN (12:15)
[2018-03-30 16:00] VITALS: BP 110/66
[2018-03-30] MEDS: QUEtiapine FUMARATE 100 MG TABLET PO PRN (17:04)
[2018-03-30] MEDS: LORazepam 0.5 MG TABLET PO PRN (17:09)
[2018-03-31 06:34] VITALS: BP 108/65
[2018-03-31 08:01] VITALS: BP 112/62
[2018-03-31] MEDS: OMEPRAZOLE 20 MG CAPSULE PO SCH (08:25)
[2018-03-31] MEDS: PARoxetine HCL 10 MG TABLET PO SCH (08:25)
[2018-03-31] MEDS: MULTIVITAMINS WITH MINERALS, THERAPEUTIC TABLET PO SCH (08:25)
[2018-03-31] MEDS: ACAMPROSATE CALCIUM 333 MG DR TABLET PO SCH ×3 (08:25→16:47)
[2018-03-31] MEDS: DOCUSATE SODIUM 100 MG CAPSULE PO SCH (08:25)
[2018-03-31] MEDS: THIAMINE HCL 100 MG TABLET PO SCH ×2 (08:25→16:47)
[2018-03-31] MEDS: GABAPENTIN 400 MG CAPSULE PO SCH ×3 (08:25→16:47)
[2018-03-31] MEDS: FOLIC ACID 1 MG TABLET PO SCH (08:26)
[2018-03-31] MEDS: METHADONE HCL 10 MG/5 ML SOLUTION ORAL.SYG PO SCH (08:26)
[2018-03-31 16:00] VITALS: BP 108/64
[2018-03-31] MEDS: LORazepam 0.5 MG TABLET PO PRN (16:47)
[2018-03-31] MEDS: QUEtiapine FUMARATE 100 MG TABLET PO PRN (16:47)
[2018-03-31] MEDS: QUEtiapine FUMARATE 200 MG TABLET PO SCH (21:07)
[2018-04-01 06:17] VITALS: BP 109/63
[2018-04-01 08:01] VITALS: BP 113/61
[2018-04-01] MEDS: METHADONE HCL 10 MG/5 ML SOLUTION ORAL.SYG PO SCH (09:05)
[2018-04-01] MEDS: PARoxetine HCL 10 MG TABLET PO SCH (09:05)
[2018-04-01] MEDS: ACAMPROSATE CALCIUM 333 MG DR TABLET PO SCH ×3 (09:06→16:34)
[2018-04-01] MEDS: GABAPENTIN 400 MG CAPSULE PO SCH ×3 (09:06→16:33)
[2018-04-01] MEDS: THIAMINE HCL 100 MG TABLET PO SCH ×2 (09:06→16:33)
[2018-04-01] MEDS: DOCUSATE SODIUM 100 MG CAPSULE PO SCH (09:06)
[2018-04-01] MEDS: FOLIC ACID 1 MG TABLET PO SCH (09:06)
[2018-04-01] MEDS: MULTIVITAMINS WITH MINERALS, THERAPEUTIC TABLET PO SCH (09:07)
[2018-04-01] MEDS: OMEPRAZOLE 20 MG CAPSULE PO SCH (09:07)
[2018-04-01] MEDS: QUEtiapine FUMARATE 100 MG TABLET PO PRN ×2 (09:07→16:34)
[2018-04-01] MEDS ORDERED: GABA-533 PO (15:59)
[2018-04-01] MEDS ORDERED: QUET200T29 PO (15:59)
[2018-04-01] MEDS ORDERED: ACAM333T7 PO (15:59)
[2018-04-01] MEDS ORDERED: PARO10TA71 PO (15:59)
[2018-04-01 16:00] VITALS: BP 127/71
[2018-04-01] MEDS: LORazepam 0.5 MG TABLET PO PRN (16:34)
[2018-04-01] MEDS: QUEtiapine FUMARATE 200 MG TABLET PO SCH (20:16)
[2018-04-02 00:47] VITALS: BP 101/66
[2018-04-02] MEDS ORDERED: PARO30TA60 PO (08:14)
[2018-04-02] MEDS ORDERED: QUET200T PO (08:15)
[2018-04-02 08:28] VITALS: BP 110/59
[2018-04-02] MEDS: OMEPRAZOLE 20 MG CAPSULE PO SCH (08:52)
[2018-04-02] MEDS: GABAPENTIN 400 MG CAPSULE PO SCH (08:52)
[2018-04-02] MEDS: FOLIC ACID 1 MG TABLET PO SCH (08:52)
[2018-04-02] MEDS: THIAMINE HCL 100 MG TABLET PO SCH (08:52)
[2018-04-02] MEDS: ACAMPROSATE CALCIUM 333 MG DR TABLET PO SCH (08:52)
[2018-04-02] MEDS: MULTIVITAMINS WITH MINERALS, THERAPEUTIC TABLET PO SCH (08:52)
[2018-04-02] MEDS: DOCUSATE SODIUM 100 MG CAPSULE PO SCH (08:52)
[2018-04-02] MEDS: PARoxetine HCL 10 MG TABLET PO SCH (08:52)
[2018-04-02] MEDS: METHADONE HCL 10 MG/5 ML SOLUTION ORAL.SYG PO SCH (08:56)
== END 2018-04-02 11:45 | disposition home or self-care (01) | DRG 754 ==
LOC: EMS 11:32 → B3A 03-30 10:04
PROVIDERS: ADMIT Psychiatry & Neurology Psychiatry; ATTEND Psychiatry & Neurology Psychiatry
DX: F32.9 Major depressive disorder, single episode, unspecified (principal); E83.51 Hypocalcemia; R45.851 Suicidal ideations; F10.20 Alcohol dependence, uncomplicated; F15.90 Other stimulant use, unspecified, uncomplicated; F17.210 Nicotine dependence, cigarettes, uncomplicated; G47.00 Insomnia, unspecified; F11.10 Opioid abuse, uncomplicated; K59.00 Constipation, unspecified; F41.9 Anxiety disorder, unspecified; Z59.0 Homelessness; Z91.14 Patient's other noncompliance with medication regimen; Z88.0 Allergy status to penicillin; Z88.8 Allergy status to other drugs, medicaments and biological substances
CPT/HCPCS: 84439; 86592; 87081; 96372; 99285; G0480; J1200; J1630; J2060

== ENCOUNTER 2018-04-25 11:13 | Inpatient (IN) | payer MEDICAID, OTHER ==
[~2018-04-25] VITALS: Ht 185.4 cm; Wt 66.0 kg
[~2018-04-25 11:13] MED LIST changes: -ACAM333T7 PO; -PARO-37 PO; -PARO20TA24 PO; +PARO30TA60 PO
[2018-04-25] MEDS ORDERED: KETOROLAC TROMETHAMINE 30 MG/ML VIAL IVP ONE (12:00)
[2018-04-25] MEDS ORDERED: ONDANSETRON HCL 4 MG/2 ML VIAL IVP ONE (12:00)
[2018-04-25] MEDS ORDERED: SODIUM CHLORIDE 0.9% 1,000 ML IV ONE (12:00)
[2018-04-25 12:07] LABS: BASOPHILS % (AUTO) 0.3 % (0.0-2.0); EOSINOPHILS % (AUTO) 0.3 % (1.0-6.0); HEMATOCRIT 47.8 % (41-53); HEMOGLOBIN 16.3 g/dL (13.5-17.5); LYMPHOCYTES # (AUTO) 1.4 K/uL (1.0-4.8); MEAN CORPUSCULAR HGB CONC 34.1 G/dL (31.0-37.0); MEAN CORPUSCULAR VOLUME 88 fL (80-100); MONOCYTES # (AUTO) 0.9 K/uL (0.1-1.0); MONOCYTES % (AUTO) 5.6 % (2.0-9.0); NEUTROPHILS # (AUTO) 13.3 K/uL (1.8-7.7); NEUTROPHILS % (AUTO) 84.8 % (40.0-70.0); PLATELET COUNT (AUTO) 292 K/uL (150-450); RED BLOOD CELL COUNT(AUTO) 5.44 MIL/uL (4.50-5.90); RED CELL DISTRIBUTION WIDTH 13.8 % (11.5-14.5)
[2018-04-25 12:24] LABS: ANION GAP 10 mmol/L (8-16); CALCIUM, TOTAL 9.8 mg/dL (8.8-10.5); CARBON DIOXIDE 29 mmol/L (22-29); CHLORIDE 102 mmol/L (98-107); CREATININE 1.01 mg/dL (0.60-1.30); GLOMERULAR FILTR. RATE CALC > 60 mL/min (>60); GLUCOSE,RANDOM 112 mg/dL (70-110); POTASSIUM 3.5 mmol/L (3.5-5.1); SODIUM SERUM 141 mmol/L (136-145); UREA NITROGEN, BLOOD 17 mg/dL (7-18)
[2018-04-25 12:27] LABS: LITHIUM 0.42 mmol/L (0.60-1.20)
[2018-04-25 12:29] LABS: ALANINE AMINOTRANSFERASE 20 U/L (12-78); ALBUMIN 4.3 g/dL (3.4-5.0); ALKALINE PHOSPHATASE 80 U/L (46-116); ASPARTATE AMINOTRANSFERASE 16 U/L (15-37); BILIRUBIN,TOTAL 0.4 mg/dL (0.1-1.0); LIPASE 809 U/L (73-393); TOTAL PROTEIN, SERUM 8.3 g/dL (6.4-8.2)
[2018-04-25] MEDS: SODIUM CHLORIDE 0.9% 1,000 ML IV SCH ×2 (14:30→20:04)
[2018-04-25] MEDS ORDERED: ONDANSETRON HCL 4 MG/2 ML VIAL IVP PRN (14:30)
[2018-04-25] MEDS ORDERED: MAGNESIUM HYDROXIDE SUSPENSION 30 ML UDCUP PO PRN (14:30)
[2018-04-25] MEDS: PANTOPRAZOLE SODIUM 40 MG/VIAL IVP SCH (16:06)
[2018-04-25 16:42] VITALS: BP 126/68
[2018-04-25 19:05] VITALS: BP 121/66
[2018-04-25] MEDS: MORPHINE SULFATE 2 MG/ML SYRINGE IVP PRN (20:03)
[2018-04-25] MEDS: DOCUSATE SODIUM 100 MG CAPSULE PO SCH (20:03)
[2018-04-25 23:12] VITALS: BP 136/59
[2018-04-25] MEDS: ACETAMINOPHEN 325 MG TABLET PO PRN (23:47)
[2018-04-26] MEDS: MORPHINE SULFATE 2 MG/ML SYRINGE IVP PRN ×5 (00:21→19:57)
[2018-04-26 04:06] VITALS: BP 124/58
[2018-04-26 04:48] LABS: APPEARANCE,URINE CLEAR (CLEAR); BILIRUBIN,URINE NEGATIVE (NEGATIVE); GLUCOSE, URINE (UA) NEGATIVE (NEGATIVE); KETONES,URINE 15 mg/dL (NEGATIVE); LEUKOCYTE ESTERASE ,URINE NEGATIVE (NEGATIVE); NITRATE,URINE NEGATIVE (NEGATIVE); OCCULT BLOOD,URINE NEGATIVE (NEGATIVE); PH,URINE 6.5 (5.0-8.0); PROTEIN,URINE NEGATIVE (NEGATIVE); UROBILINOGEN,URINE 0.2 mg/dL (<=1.0)
[2018-04-26 04:53] LABS: AMPHET/METH SCREEN,URINE NEGATIVE (NEGATIVE); BARBITURATE SCREEN, URINE NEGATIVE (NEGATIVE); BENZODIAZEPINES SCREEN,URINE NEGATIVE (NEGATIVE); CANNABINOID SCREEN,URINE NEGATIVE (NEGATIVE); COCAINE SCREEN,URINE NEGATIVE (NEGATIVE); METHADONE SCREEN, URINE POSITIVE (NEGATIVE); OPIATE SCREEN,URINE POSITIVE (NEGATIVE)
[2018-04-26 04:54] LABS: PHENCYCLIDINE SCREEN,URINE NEGATIVE (NEGATIVE)
[2018-04-26 05:00] LABS: BACTERIA,URINE None Seen /HPF (None Seen); RBC,URINE 0-2 /HPF (0-2); SQUAMOUS EPITHELIAL CELL,UR Few /LPF (None Seen); WBC,URINE 0-2 /HPF (0-5)
[2018-04-26] MEDS ORDERED: SODIUM CHLORIDE 0.9% 500 ML IV ONE ×3 (05:24→19:04)
[2018-04-26 06:40] LABS: EOSINOPHILS % (AUTO) 0 % (1.0-6.0); HEMATOCRIT 41.3 % (41-53); HEMOGLOBIN 14.2 g/dL (13.5-17.5); LYMPHOCYTES # (AUTO) 1.4 K/uL (1.0-4.8); LYMPHOCYTES % (AUTO) 15.8 % (22.0-44.0); MEAN CORPUSCULAR HEMOGLOBIN 30.2 pg (26.0-34.0); MEAN CORPUSCULAR HGB CONC 34.4 G/dL (31.0-37.0); MEAN CORPUSCULAR VOLUME 88 fL (80-100); MONOCYTES # (AUTO) 0.6 K/uL (0.1-1.0); MONOCYTES % (AUTO) 7.1 % (2.0-9.0); NEUTROPHILS # (AUTO) 6.9 K/uL (1.8-7.7); NEUTROPHILS % (AUTO) 77.1 % (40.0-70.0); PLATELET COUNT (AUTO) 250 K/uL (150-450); RED BLOOD CELL COUNT(AUTO) 4.69 MIL/uL (4.50-5.90); RED CELL DISTRIBUTION WIDTH 14.3 % (11.5-14.5)
[2018-04-26 07:02] LABS: ANION GAP 9 mmol/L (8-16); CALCIUM, TOTAL 8.7 mg/dL (8.8-10.5); CARBON DIOXIDE 25 mmol/L (22-29); CHLORIDE 105 mmol/L (98-107); CREATININE 0.84 mg/dL (0.60-1.30); GLOMERULAR FILTR. RATE CALC > 60 mL/min (>60); GLUCOSE,RANDOM 118 mg/dL (70-110); LIPASE 366 U/L (73-393); POTASSIUM 3.4 mmol/L (3.5-5.1); SODIUM SERUM 139 mmol/L (136-145); UREA NITROGEN, BLOOD 12 mg/dL (7-18)
[2018-04-26] MEDS: PANTOPRAZOLE SODIUM 40 MG/VIAL IVP SCH (08:03)
[2018-04-26] MEDS: DOCUSATE SODIUM 100 MG CAPSULE PO SCH ×2 (08:03→19:56)
[2018-04-26] MEDS: ACETAMINOPHEN 325 MG TABLET PO PRN (08:04)
[2018-04-26 08:54] VITALS: BP 127/60
[2018-04-26] MEDS ORDERED: POTASSIUM CHLORIDE 10 MEQ ER TABLET PO ONE (10:15)
[2018-04-26] MEDS ORDERED: SODIUM CHLORIDE 0.9% 1,000 ML IV ONE (10:15)
[2018-04-26] MEDS ORDERED: METHADONE HCL 10 MG TABLET PO SCH (10:15)
[2018-04-26 12:00] VITALS: BP 135/62
[2018-04-26 15:43] VITALS: BP 114/57
[2018-04-26] MEDS ORDERED: PARO10TA89 PO (19:30)
[2018-04-26] MEDS ORDERED: LITH300C3 PO (19:30)
[2018-04-26] MEDS ORDERED: GABA-533 PO (19:30)
[2018-04-26] MEDS ORDERED: QUET100T PO (19:30)
[2018-04-26 19:56] VITALS: BP 128/83
[2018-04-26] MEDS ORDERED: QUEtiapine FUMARATE 100 MG TABLET PO SCH (23:00)
[2018-04-26] MEDS ORDERED: LITHIUM CARBONATE 300 MG CAPSULE PO SCH (23:00)
[2018-04-26 23:14] VITALS: BP 123/56
[2018-04-27] MEDS: PARoxetine HCL 10 MG TABLET PO SCH ×2 (00:03→09:21)
[2018-04-27] MEDS: GABAPENTIN 400 MG CAPSULE PO SCH ×3 (00:03→13:12)
[2018-04-27] MEDS: MORPHINE SULFATE 2 MG/ML SYRINGE IVP PRN ×2 (00:04→06:35)
[2018-04-27 04:45] VITALS: BP 110/66
[2018-04-27] MEDS ORDERED: METHADONE HCL 10 MG TABLET PO SCH (09:00)
[2018-04-27] MEDS: DOCUSATE SODIUM 100 MG CAPSULE PO SCH (09:00)
[2018-04-27] MEDS ORDERED: PANTOPRAZOLE SODIUM 40 MG DR TABLET PO SCH (09:30)
== END 2018-04-27 15:20 | disposition home or self-care (01) | DRG 282 ==
LOC: EMS 11:14 → 6N 15:01
PROVIDERS: ADMIT Internal Medicine; ATTEND Internal Medicine
DX: K85.90 Acute pancreatitis without necrosis or infection, unspecified (principal); R45.851 Suicidal ideations; F33.2 Major depressive disorder, recurrent severe without psychotic features; E83.51 Hypocalcemia; F11.23 Opioid dependence with withdrawal; F10.20 Alcohol dependence, uncomplicated; F41.9 Anxiety disorder, unspecified; F15.10 Other stimulant abuse, uncomplicated; F17.210 Nicotine dependence, cigarettes, uncomplicated; F19.10 Other psychoactive substance abuse, uncomplicated; Z88.0 Allergy status to penicillin; Z88.8 Allergy status to other drugs, medicaments and biological substances; Z91.19 Patient's noncompliance with other medical treatment and regimen
CPT/HCPCS: 76705; 80307; 87081; 96374; 96375; 99285; C9113; J1885; J2270; J2405; J7030; J7040

== ENCOUNTER 2018-05-04 22:27 | Inpatient (IN) | payer MEDICAID, OTHER ==
[~2018-05-04] VITALS: Ht 193 cm; Wt 78.5 kg
[~2018-05-04 22:27] MED LIST changes: +LITH300C3 PO; +PARO10TA89 PO; -PARO30TA60 PO; +QUET100T PO
[2018-05-04] MEDS ORDERED: METH10SO PO (22:58)
[2018-05-04 23:17] LABS: BASOPHILS % (AUTO) 0.6 % (0.0-2.0); EOSINOPHILS % (AUTO) 3.7 % (1.0-6.0); HEMATOCRIT 40.5 % (41-53); HEMOGLOBIN 13.8 g/dL (13.5-17.5); LYMPHOCYTES # (AUTO) 2.3 K/uL (1.0-4.8); LYMPHOCYTES % (AUTO) 45.7 % (22.0-44.0); MEAN CORPUSCULAR HEMOGLOBIN 29.8 pg (26.0-34.0); MEAN CORPUSCULAR VOLUME 88 fL (80-100); MONOCYTES # (AUTO) 0.4 K/uL (0.1-1.0); MONOCYTES % (AUTO) 7.8 % (2.0-9.0); NEUTROPHILS # (AUTO) 2.1 K/uL (1.8-7.7); NEUTROPHILS % (AUTO) 42.2 % (40.0-70.0); PLATELET COUNT (AUTO) 306 K/uL (150-450); RED BLOOD CELL COUNT(AUTO) 4.61 MIL/uL (4.50-5.90); RED CELL DISTRIBUTION WIDTH 14.3 % (11.5-14.5)
[2018-05-04 23:26] LABS: ANION GAP 7 mmol/L (8-16); CALCIUM, TOTAL 8.6 mg/dL (8.8-10.5); CARBON DIOXIDE 29 mmol/L (22-29); CHLORIDE 105 mmol/L (98-107); CREATININE 0.85 mg/dL (0.60-1.30); GLOMERULAR FILTR. RATE CALC > 60 mL/min (>60); GLUCOSE,RANDOM 114 mg/dL (70-110); POTASSIUM 3.7 mmol/L (3.5-5.1); SODIUM SERUM 141 mmol/L (136-145); UREA NITROGEN, BLOOD 6 mg/dL (7-18)
[2018-05-04 23:32] LABS: ALANINE AMINOTRANSFERASE 22 U/L (12-78); ALBUMIN 3.4 g/dL (3.4-5.0); ALKALINE PHOSPHATASE 73 U/L (46-116); ASPARTATE AMINOTRANSFERASE 19 U/L (15-37); BILIRUBIN,TOTAL 0.2 mg/dL (0.1-1.0); TOTAL PROTEIN, SERUM 6.7 g/dL (6.4-8.2)
[2018-05-04 23:46] LABS: LITHIUM < 0.20 mmol/L (0.60-1.20)
[2018-05-05] VITALS (15 sets, daily range): BP systolic 96–118; BP diastolic 60–82
[2018-05-05] MEDS ORDERED: QUEtiapine FUMARATE 100 MG TABLET PO ONE (00:45)
[2018-05-05] MEDS ORDERED: LORazepam 2 MG TABLET PO ONE (00:45)
[2018-05-05] MEDS ORDERED: LITHIUM CARBONATE 300 MG CAPSULE PO ONE (00:45)
[2018-05-05] MEDS: LORazepam 2 MG TABLET PO PRN ×2 (03:51→17:02)
[2018-05-05] MEDS ORDERED: ALBUTEROL SULFATE HFA 90 MCG/PUFF 8 GM INHALER IH PRN (05:00)
[2018-05-05] MEDS ORDERED: ACETAMINOPHEN 325 MG TABLET PO PRN (05:00)
[2018-05-05] MEDS ORDERED: PETROLATUM,WHITE 71 GM JELLY TP PRN (05:00)
[2018-05-05] MEDS ORDERED: ONDANSETRON HCL 4 MG TABLET PO PRN (05:00)
[2018-05-05] MEDS ORDERED: LOPERAMIDE HCL 2 MG CAPSULE PO PRN (05:00)
[2018-05-05] MEDS ORDERED: MAG HYDROX/AL HYDROX/SIMETH ES 30 ML SUSPENSION UDCUP PO PRN (05:00)
[2018-05-05] MEDS ORDERED: CloNIDine HCL 0.1 MG TABLET PO PRN (05:00)
[2018-05-05] MEDS ORDERED: BACITRACIN 28.4 GM OINTMENT TP PRN (05:00)
[2018-05-05] MEDS ORDERED: IBUPROFEN 600 MG TABLET PO PRN (05:00)
[2018-05-05] MEDS ORDERED: MAGNESIUM HYDROXIDE SUSPENSION 30 ML UDCUP PO PRN (05:00)
[2018-05-05] MEDS: DOCUSATE SODIUM 100 MG CAPSULE PO SCH (09:11)
[2018-05-05] MEDS: OMEPRAZOLE 20 MG CAPSULE PO SCH (09:11)
[2018-05-05] MEDS: NICOTINE 21 MG/24 HOUR PATCH TD SCH (09:11)
[2018-05-05] MEDS: ACAMPROSATE CALCIUM 333 MG DR TABLET PO SCH ×2 (13:00→17:00)
[2018-05-05] MEDS: GABAPENTIN 400 MG CAPSULE PO SCH ×3 (13:37→20:03)
[2018-05-05] MEDS: METHADONE HCL 10 MG TABLET PO SCH (14:15)
[2018-05-05] MEDS ORDERED: QUEtiapine FUMARATE 100 MG TABLET PO SCH (21:00)
[2018-05-05] MEDS ORDERED: LITHIUM CARBONATE 300 MG CAPSULE PO SCH (21:00)
[2018-05-05] MEDS: ZOLPIDEM TARTRATE 10 MG TABLET PO PRN (21:05)
[2018-05-06 02:00] VITALS: BP 116/82
[2018-05-06 02:30] VITALS: BP 116/74
[2018-05-06 03:20] VITALS: BP 116/74
[2018-05-06 06:33] VITALS: BP 118/76
[2018-05-06 08:20] VITALS: BP 111/60
[2018-05-06] MEDS: ACAMPROSATE CALCIUM 333 MG DR TABLET PO SCH ×3 (08:29→16:11)
[2018-05-06] MEDS: OMEPRAZOLE 20 MG CAPSULE PO SCH (08:30)
[2018-05-06] MEDS: OMEGA-3/DHA/EPA/FISH OIL 1,000 MG CAPSULE PO SCH (08:30)
[2018-05-06] MEDS: METHADONE HCL 10 MG TABLET PO SCH (08:30)
[2018-05-06] MEDS: GABAPENTIN 400 MG CAPSULE PO SCH ×4 (08:30→20:11)
[2018-05-06] MEDS: DOCUSATE SODIUM 100 MG CAPSULE PO SCH (08:30)
[2018-05-06] MEDS: NICOTINE 21 MG/24 HOUR PATCH TD SCH (08:31)
[2018-05-06 08:48] LABS: BASOPHILS % (AUTO) 0.6 % (0.0-2.0); EOSINOPHILS % (AUTO) 4.7 % (1.0-6.0); HEMATOCRIT 41.8 % (41-53); LYMPHOCYTES # (AUTO) 2.1 K/uL (1.0-4.8); LYMPHOCYTES % (AUTO) 39.2 % (22.0-44.0); MEAN CORPUSCULAR HGB CONC 33.6 G/dL (31.0-37.0); MEAN CORPUSCULAR VOLUME 89 fL (80-100); MONOCYTES # (AUTO) 0.4 K/uL (0.1-1.0); NEUTROPHILS # (AUTO) 2.6 K/uL (1.8-7.7); NEUTROPHILS % (AUTO) 47.5 % (40.0-70.0); PLATELET COUNT (AUTO) 300 K/uL (150-450); RED BLOOD CELL COUNT(AUTO) 4.68 MIL/uL (4.50-5.90); RED CELL DISTRIBUTION WIDTH 14.1 % (11.5-14.5)
[2018-05-06] MEDS: PARoxetine HCL 10 MG TABLET PO SCH (08:51)
[2018-05-06 08:55] LABS: HEMOGLOBIN A1C 5.5 % (4.5-6.2)
[2018-05-06 09:20] LABS: CHOL/HDL RATIO 3.6 (4.2-7.3); FREE T4 (FREE THYROXINE) 0.72 ng/dL (0.76-1.46); THYROID STIMULATING HORMONE 0.99 uIU/mL (0.36-3.74)
[2018-05-06] MEDS: LORazepam 2 MG TABLET PO PRN (13:03)
[2018-05-06] MEDS: LITHIUM CARBONATE 300 MG CAPSULE PO SCH ×2 (13:06→16:11)
[2018-05-06 16:03] VITALS: BP 106/67
[2018-05-06] MEDS ORDERED: QUEtiapine FUMARATE 300 MG TABLET PO SCH (21:00)
[2018-05-06] MEDS: ZOLPIDEM TARTRATE 10 MG TABLET PO PRN (21:55)
[2018-05-07 02:47] VITALS: BP 121/68
[2018-05-07 08:00] VITALS: BP 110/68
[2018-05-07] MEDS: OMEGA-3/DHA/EPA/FISH OIL 1,000 MG CAPSULE PO SCH (09:00)
[2018-05-07] MEDS: ACAMPROSATE CALCIUM 333 MG DR TABLET PO SCH ×3 (09:00→16:14)
[2018-05-07] MEDS: DOCUSATE SODIUM 100 MG CAPSULE PO SCH (09:00)
[2018-05-07] MEDS: GABAPENTIN 400 MG CAPSULE PO SCH ×4 (09:13→20:13)
[2018-05-07] MEDS: LITHIUM CARBONATE 300 MG CAPSULE PO SCH ×3 (09:14→16:13)
[2018-05-07] MEDS: PARoxetine HCL 10 MG TABLET PO SCH (09:14)
[2018-05-07] MEDS: OMEPRAZOLE 20 MG CAPSULE PO SCH (09:14)
[2018-05-07] MEDS: METHADONE HCL 10 MG TABLET PO SCH (09:16)
[2018-05-07] MEDS: NICOTINE 21 MG/24 HOUR PATCH TD SCH (09:24)
[2018-05-07] MEDS: LORazepam 2 MG TABLET PO PRN (13:42)
[2018-05-07] MEDS: QUEtiapine FUMARATE 100 MG TABLET PO PRN (13:42)
[2018-05-07 17:43] VITALS: BP 120/79
[2018-05-07] MEDS: QUEtiapine FUMARATE 200 MG TABLET PO SCH (20:13)
[2018-05-08 06:58] VITALS: BP 101/72
[2018-05-08 08:16] VITALS: BP 108/63
[2018-05-08] MEDS: GABAPENTIN 400 MG CAPSULE PO SCH ×4 (08:32→20:05)
[2018-05-08] MEDS: METHADONE HCL 10 MG TABLET PO SCH (08:32)
[2018-05-08] MEDS: LITHIUM CARBONATE 300 MG CAPSULE PO SCH ×3 (08:32→16:15)
[2018-05-08] MEDS: OMEPRAZOLE 20 MG CAPSULE PO SCH (08:32)
[2018-05-08] MEDS: ACAMPROSATE CALCIUM 333 MG DR TABLET PO SCH ×3 (08:33→17:00)
[2018-05-08] MEDS: OMEGA-3/DHA/EPA/FISH OIL 1,000 MG CAPSULE PO SCH (08:33)
[2018-05-08] MEDS: DOCUSATE SODIUM 100 MG CAPSULE PO SCH (08:33)
[2018-05-08] MEDS: NICOTINE 21 MG/24 HOUR PATCH TD SCH (09:00)
[2018-05-08] MEDS: PARoxetine HCL 20 MG TABLET PO SCH (09:03)
[2018-05-08] MEDS ORDERED: PALIPERIDONE 3 MG ER TABLET PO SCH (09:15)
[2018-05-08] MEDS: QUEtiapine FUMARATE 100 MG TABLET PO PRN (11:23)
[2018-05-08] MEDS: LORazepam 2 MG TABLET PO PRN (11:23)
[2018-05-08 16:05] VITALS: BP 104/60
[2018-05-08] MEDS: QUEtiapine FUMARATE 200 MG TABLET PO SCH (20:05)
[2018-05-08] MEDS: ZOLPIDEM TARTRATE 10 MG TABLET PO PRN (20:39)
[2018-05-09 06:35] VITALS: BP 110/68
[2018-05-09 08:27] VITALS: BP 109/68
[2018-05-09] MEDS: NICOTINE 21 MG/24 HOUR PATCH TD SCH (09:00)
[2018-05-09] MEDS: DOCUSATE SODIUM 100 MG CAPSULE PO SCH ×2 (09:00→09:08)
[2018-05-09] MEDS: ACAMPROSATE CALCIUM 333 MG DR TABLET PO SCH ×3 (09:00→16:04)
[2018-05-09] MEDS: PARoxetine HCL 20 MG TABLET PO SCH (09:08)
[2018-05-09] MEDS: OMEPRAZOLE 20 MG CAPSULE PO SCH (09:08)
[2018-05-09] MEDS: LITHIUM CARBONATE 300 MG CAPSULE PO SCH ×3 (09:08→16:03)
[2018-05-09] MEDS: GABAPENTIN 400 MG CAPSULE PO SCH ×4 (09:08→20:10)
[2018-05-09] MEDS: METHADONE HCL 10 MG TABLET PO SCH (09:08)
[2018-05-09] MEDS: OMEGA-3/DHA/EPA/FISH OIL 1,000 MG CAPSULE PO SCH (09:09)
[2018-05-09] MEDS: QUEtiapine FUMARATE 100 MG TABLET PO PRN (10:50)
[2018-05-09] MEDS: LORazepam 2 MG TABLET PO PRN (16:03)
[2018-05-09 16:23] VITALS: BP 112/63
[2018-05-09] MEDS: QUEtiapine FUMARATE 200 MG TABLET PO SCH (20:10)
[2018-05-09] MEDS: ZOLPIDEM TARTRATE 10 MG TABLET PO PRN (21:05)
[2018-05-09] MEDS: BENZOCAINE/MENTHOL LOZENGE MM PRN (21:34)
[2018-05-10 04:20] VITALS: BP 116/72
[2018-05-10] MEDS: LORazepam 2 MG TABLET PO PRN ×2 (04:22→13:00)
[2018-05-10] MEDS: LITHIUM CARBONATE 300 MG CAPSULE PO SCH ×4 (08:32→20:04)
[2018-05-10] MEDS: GABAPENTIN 400 MG CAPSULE PO SCH ×4 (08:32→20:04)
[2018-05-10] MEDS: PARoxetine HCL 20 MG TABLET PO SCH (08:32)
[2018-05-10] MEDS: METHADONE HCL 10 MG TABLET PO SCH (08:32)
[2018-05-10] MEDS: OMEGA-3/DHA/EPA/FISH OIL 1,000 MG CAPSULE PO SCH (08:32)
[2018-05-10] MEDS: OMEPRAZOLE 20 MG CAPSULE PO SCH (08:32)
[2018-05-10] MEDS: DOCUSATE SODIUM 100 MG CAPSULE PO SCH (08:32)
[2018-05-10] MEDS: ACAMPROSATE CALCIUM 333 MG DR TABLET PO SCH ×3 (09:00→16:26)
[2018-05-10 09:49] VITALS: BP 110/61
[2018-05-10] MEDS: QUEtiapine FUMARATE 100 MG TABLET PO PRN (13:00)
[2018-05-10 16:12] VITALS: BP 109/68
[2018-05-10] MEDS: QUEtiapine FUMARATE 200 MG TABLET PO SCH (20:05)
[2018-05-10] MEDS: ZOLPIDEM TARTRATE 10 MG TABLET PO PRN (21:12)
[2018-05-11 01:02] VITALS: BP 110/63
[2018-05-11] MEDS: METHADONE HCL 10 MG TABLET PO SCH (08:38)
[2018-05-11] MEDS: LITHIUM CARBONATE 300 MG CAPSULE PO SCH ×4 (08:39→20:21)
[2018-05-11] MEDS: DOCUSATE SODIUM 100 MG CAPSULE PO SCH (08:39)
[2018-05-11] MEDS: GABAPENTIN 400 MG CAPSULE PO SCH ×4 (08:39→20:19)
[2018-05-11] MEDS: OMEGA-3/DHA/EPA/FISH OIL 1,000 MG CAPSULE PO SCH (08:46)
[2018-05-11] MEDS: OMEPRAZOLE 20 MG CAPSULE PO SCH (08:47)
[2018-05-11 08:48] VITALS: BP 111/59
[2018-05-11] MEDS: ACAMPROSATE CALCIUM 333 MG DR TABLET PO SCH ×3 (09:00→17:00)
[2018-05-11] MEDS ORDERED: FLUoxetine HCL 20 MG CAPSULE PO SCH (09:00)
[2018-05-11] MEDS: QUEtiapine FUMARATE 100 MG TABLET PO PRN (13:15)
[2018-05-11] MEDS: LORazepam 2 MG TABLET PO PRN (16:08)
[2018-05-11 16:10] VITALS: BP 111/67
[2018-05-11] MEDS: ZOLPIDEM TARTRATE 10 MG TABLET PO PRN (20:45)
[2018-05-11] MEDS ORDERED: QUEtiapine FUMARATE 300 MG TABLET PO SCH (21:00)
[2018-05-12] MEDS: LORazepam 2 MG TABLET PO PRN ×3 (01:15→14:21)
[2018-05-12 04:48] VITALS: BP 112/66
[2018-05-12 08:48] VITALS: BP 113/60
[2018-05-12] MEDS: ACAMPROSATE CALCIUM 333 MG DR TABLET PO SCH ×3 (09:00→17:00)
[2018-05-12] MEDS: OMEGA-3/DHA/EPA/FISH OIL 1,000 MG CAPSULE PO SCH (09:02)
[2018-05-12] MEDS: OMEPRAZOLE 20 MG CAPSULE PO SCH (09:02)
[2018-05-12] MEDS: GABAPENTIN 400 MG CAPSULE PO SCH ×2 (09:02→12:44)
[2018-05-12] MEDS: LITHIUM CARBONATE 300 MG CAPSULE PO SCH ×4 (09:02→20:17)
[2018-05-12] MEDS: DOCUSATE SODIUM 100 MG CAPSULE PO SCH (09:02)
[2018-05-12] MEDS: FLUoxetine HCL 20 MG CAPSULE PO SCH (09:02)
[2018-05-12] MEDS: METHADONE HCL 10 MG TABLET PO SCH (09:03)
[2018-05-12] MEDS: QUEtiapine FUMARATE 100 MG TABLET PO PRN ×2 (10:12→14:21)
[2018-05-12 14:15] VITALS: BP 116/65
[2018-05-12] MEDS: GABAPENTIN 300 MG CAPSULE PO SCH (16:02)
[2018-05-12 16:43] VITALS: BP 114/72
[2018-05-12] MEDS: BENZOCAINE/MENTHOL LOZENGE MM PRN (17:36)
[2018-05-12] MEDS: QUEtiapine FUMARATE 200 MG TABLET PO SCH (20:17)
[2018-05-12] MEDS: ZOLPIDEM TARTRATE 10 MG TABLET PO PRN (20:41)
[2018-05-13 06:32] VITALS: BP 108/60
[2018-05-13 08:27] VITALS: BP 116/60
[2018-05-13] MEDS: OMEPRAZOLE 20 MG CAPSULE PO SCH (08:42)
[2018-05-13] MEDS: GABAPENTIN 300 MG CAPSULE PO SCH ×3 (08:42→16:12)
[2018-05-13] MEDS: METHADONE HCL 10 MG TABLET PO SCH (08:42)
[2018-05-13] MEDS: FLUoxetine HCL 20 MG CAPSULE PO SCH (08:42)
[2018-05-13] MEDS: LITHIUM CARBONATE 300 MG CAPSULE PO SCH ×4 (08:42→20:06)
[2018-05-13] MEDS: DOCUSATE SODIUM 100 MG CAPSULE PO SCH (08:42)
[2018-05-13] MEDS: OMEGA-3/DHA/EPA/FISH OIL 1,000 MG CAPSULE PO SCH (08:43)
[2018-05-13] MEDS: ACAMPROSATE CALCIUM 333 MG DR TABLET PO SCH ×3 (08:43→17:00)
[2018-05-13] MEDS: QUEtiapine FUMARATE 100 MG TABLET PO PRN (10:24)
[2018-05-13] MEDS: LORazepam 2 MG TABLET PO PRN ×2 (13:30→18:37)
[2018-05-13 16:17] VITALS: BP 113/62
[2018-05-13] MEDS: HALOPERIDOL 10 MG TABLET PO PRN (17:49)
[2018-05-13] MEDS: QUEtiapine FUMARATE 200 MG TABLET PO SCH (20:06)
[2018-05-13] MEDS: ZOLPIDEM TARTRATE 10 MG TABLET PO PRN (20:40)
[2018-05-14 06:24] VITALS: BP 110/62
[2018-05-14] MEDS: HALOPERIDOL 10 MG TABLET PO PRN ×2 (06:38→16:51)
[2018-05-14] MEDS: ACAMPROSATE CALCIUM 333 MG DR TABLET PO SCH ×3 (09:00→17:00)
[2018-05-14 09:21] VITALS: BP 117/67
[2018-05-14] MEDS: OMEGA-3/DHA/EPA/FISH OIL 1,000 MG CAPSULE PO SCH (09:21)
[2018-05-14] MEDS: GABAPENTIN 300 MG CAPSULE PO SCH ×2 (09:21→13:20)
[2018-05-14] MEDS: METHADONE HCL 10 MG TABLET PO SCH (09:21)
[2018-05-14] MEDS: FLUoxetine HCL 20 MG CAPSULE PO SCH (09:21)
[2018-05-14] MEDS: LITHIUM CARBONATE 300 MG CAPSULE PO SCH ×4 (09:21→20:10)
[2018-05-14] MEDS: OMEPRAZOLE 20 MG CAPSULE PO SCH (09:21)
[2018-05-14] MEDS: DOCUSATE SODIUM 100 MG CAPSULE PO SCH (09:22)
[2018-05-14] MEDS: GABAPENTIN 400 MG CAPSULE PO SCH (16:11)
[2018-05-14] MEDS: LORazepam 2 MG TABLET PO PRN (16:11)
[2018-05-14 16:18] VITALS: BP 109/74
[2018-05-14] MEDS: QUEtiapine FUMARATE 200 MG TABLET PO SCH (20:10)
[2018-05-14] MEDS: ZOLPIDEM TARTRATE 10 MG TABLET PO PRN (21:26)
[2018-05-15 06:06] VITALS: BP 110/76
[2018-05-15 08:17] VITALS: BP 118/61
[2018-05-15] MEDS: METHADONE HCL 10 MG TABLET PO SCH (08:57)
[2018-05-15] MEDS: GABAPENTIN 400 MG CAPSULE PO SCH ×3 (08:58→16:04)
[2018-05-15] MEDS: LITHIUM CARBONATE 300 MG CAPSULE PO SCH ×4 (08:58→20:03)
[2018-05-15] MEDS: DOCUSATE SODIUM 100 MG CAPSULE PO SCH (08:59)
[2018-05-15] MEDS: OMEPRAZOLE 20 MG CAPSULE PO SCH (08:59)
[2018-05-15] MEDS: ACAMPROSATE CALCIUM 333 MG DR TABLET PO SCH ×3 (09:00→17:00)
[2018-05-15] MEDS: FLUoxetine HCL 20 MG CAPSULE PO SCH (09:01)
[2018-05-15] MEDS: OMEGA-3/DHA/EPA/FISH OIL 1,000 MG CAPSULE PO SCH (09:02)
[2018-05-15] MEDS: HALOPERIDOL 10 MG TABLET PO PRN (15:03)
[2018-05-15] MEDS: LORazepam 2 MG TABLET PO PRN (16:08)
[2018-05-15 16:28] VITALS: BP 104/84
[2018-05-15] MEDS: QUEtiapine FUMARATE 200 MG TABLET PO SCH (20:03)
[2018-05-16 05:05] VITALS: BP 100/60
[2018-05-16 08:04] VITALS: BP 102/60
[2018-05-16] MEDS: METHADONE HCL 10 MG TABLET PO SCH (08:34)
[2018-05-16] MEDS: DOCUSATE SODIUM 100 MG CAPSULE PO SCH (08:35)
[2018-05-16] MEDS: FLUoxetine HCL 20 MG CAPSULE PO SCH (08:35)
[2018-05-16] MEDS: OMEGA-3/DHA/EPA/FISH OIL 1,000 MG CAPSULE PO SCH (08:35)
[2018-05-16] MEDS: GABAPENTIN 400 MG CAPSULE PO SCH ×3 (08:35→16:09)
[2018-05-16] MEDS: LITHIUM CARBONATE 300 MG CAPSULE PO SCH ×4 (08:36→20:31)
[2018-05-16] MEDS: OMEPRAZOLE 20 MG CAPSULE PO SCH (08:36)
[2018-05-16] MEDS: ACAMPROSATE CALCIUM 333 MG DR TABLET PO SCH ×3 (08:51→17:00)
[2018-05-16] MEDS: HALOPERIDOL 10 MG TABLET PO PRN (15:46)
[2018-05-16 16:09] VITALS: BP 124/65
[2018-05-16] MEDS: LORazepam 2 MG TABLET PO PRN (17:27)
[2018-05-16] MEDS: QUEtiapine FUMARATE 200 MG TABLET PO SCH (20:31)
[2018-05-17 06:21] VITALS: BP 108/70
[2018-05-17] MEDS: ACAMPROSATE CALCIUM 333 MG DR TABLET PO SCH ×3 (09:00→17:00)
[2018-05-17 09:05] VITALS: BP 119/65
[2018-05-17] MEDS: OMEGA-3/DHA/EPA/FISH OIL 1,000 MG CAPSULE PO SCH (09:09)
[2018-05-17] MEDS: FLUoxetine HCL 20 MG CAPSULE PO SCH (09:09)
[2018-05-17] MEDS: DOCUSATE SODIUM 100 MG CAPSULE PO SCH (09:09)
[2018-05-17] MEDS: OMEPRAZOLE 20 MG CAPSULE PO SCH (09:09)
[2018-05-17] MEDS: GABAPENTIN 400 MG CAPSULE PO SCH ×3 (09:09→16:19)
[2018-05-17] MEDS: LITHIUM CARBONATE 300 MG CAPSULE PO SCH ×4 (09:09→20:08)
[2018-05-17] MEDS: METHADONE HCL 10 MG TABLET PO SCH (09:09)
[2018-05-17] MEDS: LORazepam 2 MG TABLET PO PRN ×2 (12:12→16:19)
[2018-05-17] MEDS: HALOPERIDOL 10 MG TABLET PO PRN (14:43)
[2018-05-17 16:16] VITALS: BP 111/65
[2018-05-17] MEDS: QUEtiapine FUMARATE 200 MG TABLET PO SCH (20:09)
[2018-05-17] MEDS: ZOLPIDEM TARTRATE 10 MG TABLET PO PRN (20:40)
[2018-05-18 00:24] VITALS: BP 101/62
[2018-05-18 08:12] VITALS: BP 109/60
[2018-05-18] MEDS: ACAMPROSATE CALCIUM 333 MG DR TABLET PO SCH ×3 (09:00→17:00)
[2018-05-18] MEDS: OMEPRAZOLE 20 MG CAPSULE PO SCH (09:17)
[2018-05-18] MEDS: GABAPENTIN 400 MG CAPSULE PO SCH ×3 (09:17→16:11)
[2018-05-18] MEDS: FLUoxetine HCL 20 MG CAPSULE PO SCH (09:17)
[2018-05-18] MEDS: DOCUSATE SODIUM 100 MG CAPSULE PO SCH (09:17)
[2018-05-18] MEDS: METHADONE HCL 10 MG TABLET PO SCH (09:17)
[2018-05-18] MEDS: LITHIUM CARBONATE 300 MG CAPSULE PO SCH ×4 (09:18→20:31)
[2018-05-18] MEDS: OMEGA-3/DHA/EPA/FISH OIL 1,000 MG CAPSULE PO SCH (09:18)
[2018-05-18] MEDS: LORazepam 2 MG TABLET PO PRN (13:33)
[2018-05-18] MEDS: HALOPERIDOL 10 MG TABLET PO PRN (16:11)
[2018-05-18 16:12] VITALS: BP 111/69
[2018-05-18] MEDS: ZOLPIDEM TARTRATE 10 MG TABLET PO PRN (20:31)
[2018-05-18] MEDS: QUEtiapine FUMARATE 200 MG TABLET PO SCH (20:31)
[2018-05-19 01:33] VITALS: BP 102/66
[2018-05-19 08:23] VITALS: BP 101/59
[2018-05-19] MEDS: ACAMPROSATE CALCIUM 333 MG DR TABLET PO SCH ×4 (09:00→17:00)
[2018-05-19] MEDS: METHADONE HCL 10 MG TABLET PO SCH (09:27)
[2018-05-19] MEDS: DOCUSATE SODIUM 100 MG CAPSULE PO SCH (09:27)
[2018-05-19] MEDS: FLUoxetine HCL 20 MG CAPSULE PO SCH (09:27)
[2018-05-19] MEDS: OMEGA-3/DHA/EPA/FISH OIL 1,000 MG CAPSULE PO SCH (09:28)
[2018-05-19] MEDS: OMEPRAZOLE 20 MG CAPSULE PO SCH (09:28)
[2018-05-19] MEDS: LITHIUM CARBONATE 300 MG CAPSULE PO SCH ×4 (09:28→20:56)
[2018-05-19] MEDS: GABAPENTIN 400 MG CAPSULE PO SCH ×3 (09:28→17:15)
[2018-05-19] MEDS: LORazepam 2 MG TABLET PO PRN (12:39)
[2018-05-19] MEDS: HALOPERIDOL 10 MG TABLET PO PRN (12:39)
[2018-05-19 16:00] VITALS: BP 118/72
[2018-05-19] MEDS: QUEtiapine FUMARATE 200 MG TABLET PO SCH (20:56)
[2018-05-20 01:39] VITALS: BP 107/69
[2018-05-20 08:31] VITALS: BP 120/59
[2018-05-20] MEDS: ACAMPROSATE CALCIUM 333 MG DR TABLET PO SCH ×3 (09:00→17:00)
[2018-05-20] MEDS: DOCUSATE SODIUM 100 MG CAPSULE PO SCH (09:17)
[2018-05-20] MEDS: METHADONE HCL 10 MG TABLET PO SCH (09:17)
[2018-05-20] MEDS: FLUoxetine HCL 20 MG CAPSULE PO SCH (09:17)
[2018-05-20] MEDS: OMEPRAZOLE 20 MG CAPSULE PO SCH (09:17)
[2018-05-20] MEDS: GABAPENTIN 400 MG CAPSULE PO SCH ×3 (09:17→17:14)
[2018-05-20] MEDS: LITHIUM CARBONATE 300 MG CAPSULE PO SCH ×4 (09:17→21:27)
[2018-05-20] MEDS: OMEGA-3/DHA/EPA/FISH OIL 1,000 MG CAPSULE PO SCH (09:18)
[2018-05-20] MEDS: LORazepam 2 MG TABLET PO PRN ×2 (12:03→17:14)
[2018-05-20] MEDS: HALOPERIDOL 10 MG TABLET PO PRN ×2 (12:03→17:14)
[2018-05-20 19:48] VITALS: BP 109/66
[2018-05-20] MEDS: ESZOPICLONE 3 MG TABLET PO SCH (21:27)
[2018-05-20] MEDS: QUEtiapine FUMARATE 200 MG TABLET PO SCH (21:27)
[2018-05-21 01:50] VITALS: BP 117/68
[2018-05-21 08:58] VITALS: BP 114/60
[2018-05-21] MEDS: ACAMPROSATE CALCIUM 333 MG DR TABLET PO SCH ×3 (09:00→17:00)
[2018-05-21] MEDS: METHADONE HCL 10 MG TABLET PO SCH (09:14)
[2018-05-21] MEDS: GABAPENTIN 400 MG CAPSULE PO SCH ×3 (09:14→16:06)
[2018-05-21] MEDS: LITHIUM CARBONATE 300 MG CAPSULE PO SCH ×4 (09:14→20:48)
[2018-05-21] MEDS: DOCUSATE SODIUM 100 MG CAPSULE PO SCH (09:14)
[2018-05-21] MEDS: NICOTINE 21 MG/24 HOUR PATCH TD SCH (09:15)
[2018-05-21] MEDS: OMEPRAZOLE 20 MG CAPSULE PO SCH (09:15)
[2018-05-21] MEDS: FLUoxetine HCL 20 MG CAPSULE PO SCH (09:15)
[2018-05-21] MEDS: OMEGA-3/DHA/EPA/FISH OIL 1,000 MG CAPSULE PO SCH (09:16)
[2018-05-21] MEDS: HALOPERIDOL 10 MG TABLET PO PRN ×2 (12:22→16:23)
[2018-05-21] MEDS: LORazepam 2 MG TABLET PO PRN (12:22)
[2018-05-21 16:21] VITALS: BP 113/61
[2018-05-21] MEDS: QUEtiapine FUMARATE 200 MG TABLET PO SCH (20:48)
[2018-05-21] MEDS: ESZOPICLONE 3 MG TABLET PO SCH (21:08)
[2018-05-22 01:14] VITALS: BP 111/62
[2018-05-22 08:26] VITALS: BP 102/60
[2018-05-22] MEDS: METHADONE HCL 10 MG TABLET PO SCH (08:56)
[2018-05-22] MEDS: OMEGA-3/DHA/EPA/FISH OIL 1,000 MG CAPSULE PO SCH (08:56)
[2018-05-22] MEDS: GABAPENTIN 400 MG CAPSULE PO SCH ×2 (08:56→13:07)
[2018-05-22] MEDS: LITHIUM CARBONATE 300 MG CAPSULE PO SCH ×2 (08:56→13:08)
[2018-05-22] MEDS: FLUoxetine HCL 20 MG CAPSULE PO SCH (08:56)
[2018-05-22] MEDS: DOCUSATE SODIUM 100 MG CAPSULE PO SCH (08:57)
[2018-05-22] MEDS: OMEPRAZOLE 20 MG CAPSULE PO SCH (08:57)
[2018-05-22] MEDS: NICOTINE 21 MG/24 HOUR PATCH TD SCH (09:00)
[2018-05-22] MEDS: ACAMPROSATE CALCIUM 333 MG DR TABLET PO SCH ×2 (09:00→13:00)
[2018-05-22] MEDS ORDERED: FLUO-191 PO (10:35)
[2018-05-22] MEDS ORDERED: GABA-533 PO (10:35)
[2018-05-22] MEDS ORDERED: OMEG-135 PO (10:35)
[2018-05-22] MEDS ORDERED: LITH300C3 PO (10:35)
[2018-05-22] MEDS ORDERED: QUET200T PO (10:35)
[2018-05-22] MEDS ORDERED: DSS100 PO (10:37)
[2018-05-22] MEDS ORDERED: OMEP20 PO (10:37)
== END 2018-05-22 14:10 | disposition home or self-care (01) | DRG 750 ==
LOC: EMS 22:27 → B2S 05-05 01:00
PROVIDERS: ADMIT Psychiatry & Neurology Psychiatry; ATTEND Psychiatry & Neurology Psychiatry
DX: F25.1 Schizoaffective disorder, depressive type (principal); E83.51 Hypocalcemia; R45.851 Suicidal ideations; F41.9 Anxiety disorder, unspecified; F17.200 Nicotine dependence, unspecified, uncomplicated; F15.90 Other stimulant use, unspecified, uncomplicated; G47.00 Insomnia, unspecified; K59.00 Constipation, unspecified; F12.90 Cannabis use, unspecified, uncomplicated; Z91.19 Patient's noncompliance with other medical treatment and regimen; Z59.0 Homelessness; Z88.0 Allergy status to penicillin
CPT/HCPCS: 83036; 84436; 84439; 84443; 87081; 99285; G0480